=== PATIENT | male | born 1985 | race Caucasian/White ===

== ENCOUNTER 2022-11-28 21:48 | Inpatient (IN) ==
[2022-11-28] MEDS ORDERED: Lactated Ringers 1000 ml BAG 1,000 ML IV ONE (22:26)
[2022-11-29 00:13] LABS: ABS Basophils 0.1 10^3/uL (0.0-0.1); ABS Monocytes 1.4 10^3/uL (0.0-1.1); ABS Nucleated RBC 0.01 10^3/ul; Hematocrit 31.8 % (38-53); Hemoglobin 10.9 g/dL (13.2-16.3); Lymphocyte % 5.8 %; Mean Corpuscular Hemoglobin 28.9 pg (27-33); Mean Corpuscular Hgb Conc 34.3 g/dL (31-36); Mean Corpuscular Volume 84.2 fL (80-97); Mean Platelet Volume 8.1 fL (7.5-11.2); Nucleated Red Blood Cells % 0.1 %/100WBC (0.0-0.8); Platelet Count 289 10^3/uL (150-450); Red Blood Count 3.78 10^6/uL (4.06-5.63); Red Cell Distribution Width 12.6 % (12-17); White Blood Count 17.5 10^3/uL (3.6-10.2)
[2022-11-29 00:25] LABS: Albumin 3.4 g/dL (3.2-5.2); Calcium 8.8 mg/dL (8.6-10.3); Total Bilirubin 0.8 mg/dL (0.2-1.0)
[2022-11-29 00:31] LABS: Albumin/Globulin Ratio 0.8 (1-3); C Reactive Protein 268.69 mg/L (<8.01); Creatinine, Serum 0.5 mg/dL (0.67-1.17); Globulin 4.2 g/dL (2-4); Total Protein 7.6 g/dL (6.4-8.9); eGFR CKD-EPI 133.1 (>60)
[2022-11-29] MEDS ORDERED: Iohexol 300 (CONTRAST) 10 ML SDV IV ONE (00:42)
[2022-11-29 01:36] LABS: High Sensitivity Troponin 1 Hr 3 pg/mL (<20)
[2022-11-29] MEDS ORDERED: Cefepime 1 GM in Dextrose 1 GM/50 ML BAG IV ONE (01:55)
[2022-11-29] MEDS ORDERED: Vancomycin 1,500 MG in NS 0.9% 250 ml 250 ML IVPB ONE (01:55)
[2022-11-29] MEDS ORDERED: Lactated Ringers 1000 ml BAG 1,000 ML IV ONE (01:56)
[2022-11-29] MEDS ORDERED: Vancomycin per Pharmacy 1 EA NOTE FOLLOW UP PRN (06:04)
[2022-11-29 06:29] LABS: Urine Appearance Clear; Urine Bilirubin Negative (Negative); Urine Blood 1+ (Negative); Urine Color Yellow; Urine Glucose Negative (Negative); Urine Ketones Negative (Negative); Urine Nitrite Negative (Negative); Urine Protein Negative (Negative); Urine Specific Gravity 1.028 (1.002-1.030); Urine Urobilinogen Negative (Negative)
[2022-11-29 06:37] LABS: Urine Osmo 232 mOsm/kg (150-1150)
[2022-11-29 07:06] LABS: Urine Benzodiazepine Screen Presumptive Positive (None Detect); Urine Cannabinoids Screen None Detected (None Detect); Urine Opiates Screen None Detected (None Detect)
[2022-11-29 07:11] LABS: Urine Bacteria 1+ (Absent); Urine Red Blood Cell Trace(0-2/hpf) (Absent); Urine White Blood Cell Trace(0-5/hpf) (Absent)
[2022-11-29] MEDS ORDERED: Magnesium Hydroxide LIQ 30 ML UDC PO PRN (07:19)
[2022-11-29] MEDS ORDERED: Senna TAB 8.6 mg TAB PO PRN (07:19)
[2022-11-29 09:58] LABS: ABS Basophils 0.1 10^3/uL (0.0-0.1); ABS Lymphocytes 0.8 10^3/uL (1.0-4.8); ABS Monocytes 1.1 10^3/uL (0.0-1.1); ABS Neutrophils 13.1 10^3/uL (1.5-7.6); Eosinophil % 0.1 %; Hematocrit 32.5 % (38-53); Lymphocyte % 5.4 %; Mean Corpuscular Hemoglobin 28.7 pg (27-33); Mean Corpuscular Hgb Conc 33.9 g/dL (31-36); Mean Corpuscular Volume 84.5 fL (80-97); Mean Platelet Volume 7.7 fL (7.5-11.2); Platelet Count 280 10^3/uL (150-450); Red Blood Count 3.84 10^6/uL (4.06-5.63); Red Cell Distribution Width 12.8 % (12-17); White Blood Count 15.1 10^3/uL (3.6-10.2)
[2022-11-29 10:14] LABS: Calcium 8.3 mg/dL (8.6-10.3); Magnesium 1.6 mg/dL (1.9-2.7); Potassium 4.1 mmol/L (3.5-5.0)
[2022-11-29 10:19] LABS: Creatinine, Serum 0.53 mg/dL (0.67-1.17); eGFR CKD-EPI 130.7 (>60)
[2022-11-29] MEDS: Cefepime 2 GM in Dextrose 2 GM/50 ML BAG IV SCH ×2 (10:57→19:13)
[2022-11-29] MEDS: Vancomycin 1,250 MG in NS 0.9% 250 ml 250 ML IVPB SCH ×2 (12:45→21:02)
[2022-11-29] MEDS ORDERED: Ondansetron ODT 4 mg TAB 4 MG TAB PO PRN (14:52)
[2022-11-29] MEDS ORDERED: Magnesium Sulfate IV 3 GM in NS 0.9% 100 ml BAG 100 ML IVPB ONE (15:40)
[2022-11-29] MEDS ORDERED: Naloxone Nasal Spray 4 MG/0.1 ML NASAL.SPR INTRANASAL PRN (18:13)
[2022-11-29] MEDS: Morphine 2 MG/ML SYRINGE IV PRN (18:36)
[2022-11-30] MEDS: Morphine 2 MG/ML SYRINGE IV PRN ×4 (00:50→21:15)
[2022-11-30] MEDS: Cefepime 2 GM in Dextrose 2 GM/50 ML BAG IV SCH ×2 (02:47→09:06)
[2022-11-30] MEDS: Vancomycin 1,250 MG in NS 0.9% 250 ml 250 ML IVPB SCH ×2 (03:51→12:59)
[2022-11-30 08:50] LABS: Hematocrit 34.7 % (38-53); Hemoglobin 11.8 g/dL (13.2-16.3); Mean Corpuscular Hemoglobin 28.7 pg (27-33); Mean Corpuscular Volume 84.4 fL (80-97); Mean Platelet Volume 8.3 fL (7.5-11.2); Platelet Count 303 10^3/uL (150-450); Red Blood Count 4.12 10^6/uL (4.06-5.63); White Blood Count 12.7 10^3/uL (3.6-10.2)
[2022-11-30 09:55] LABS: Calcium 8.4 mg/dL (8.6-10.3); Creatinine, Serum 0.53 mg/dL (0.67-1.17); Potassium 3.9 mmol/L (3.5-5.0); eGFR CKD-EPI 130.7 (>60)
[2022-11-30 10:17] LABS: Osmolality Serum 268 mOsm/kg (275-295)
[2022-11-30] MEDS ORDERED: Vancomycin Trough Check NOTE FOLLOW UP ONE (11:30)
[2022-11-30] MEDS: NS 0.9% 1000 ml BAG 1,000 ML IV SCH (12:56)
[2022-11-30] MEDS: Vancomycin 1000 MG in NS 0.9% 250 ML IVPB SCH (18:40)
[2022-11-30 22:39] LABS: High Sensitivity Troponin 1 Hr 6 pg/mL (<20)
[2022-11-30] MEDS ORDERED: Gadoteridol (CONTRAST) 279.3 MG/ML 10 ML IV ONE (23:02)
[2022-12-01] MEDS: Morphine 2 MG/ML SYRINGE IV PRN ×7 (01:25→20:42)
[2022-12-01] MEDS: Vancomycin 1000 MG in NS 0.9% 250 ML IVPB SCH ×4 (01:41→18:42)
[2022-12-01] MEDS: NS 0.9% 1000 ml BAG 1,000 ML IV SCH (04:21)
[2022-12-01 05:51] LABS: Hematocrit 33.8 % (38-53); Hemoglobin 11.6 g/dL (13.2-16.3); Mean Corpuscular Hemoglobin 28.7 pg (27-33); Mean Corpuscular Hgb Conc 34.2 g/dL (31-36); Mean Corpuscular Volume 83.8 fL (80-97); Platelet Count 339 10^3/uL (150-450); Red Blood Count 4.04 10^6/uL (4.06-5.63); Red Cell Distribution Width 12.9 % (12-17); White Blood Count 12.3 10^3/uL (3.6-10.2)
[2022-12-01 06:05] LABS: Calcium 8.3 mg/dL (8.6-10.3); Creatinine, Serum 0.53 mg/dL (0.67-1.17); Potassium 4.2 mmol/L (3.5-5.0); eGFR CKD-EPI 130.7 (>60)
[2022-12-01] MEDS ORDERED: Lidocaine 2% PF 5 ML VIAL ONE (11:02)
[2022-12-01] MEDS ORDERED: Phenylephrine 40 mcg/mL 10mL (400mcg) SYRINGE ONE (11:03)
[2022-12-01] MEDS ORDERED: Propofol 10 MG/ML 20 ML BTL ONE (11:07)
[2022-12-01] MEDS ORDERED: Vancomycin Trough Check NOTE FOLLOW UP ONE (11:30)
[2022-12-01 12:06] LABS: Creatinine, Serum 0.4 mg/dL (0.67-1.17); eGFR CKD-EPI 142.3 (>60)
[2022-12-01 16:28] LABS: HIV 4th Generation Nonreactive (Nonreactive)
[2022-12-01 17:23] VITALS: BP 156/87
[2022-12-01 18:02] LABS: Hepatitis C Antibody Reactive (Negative)
[2022-12-04] MEDS ORDERED: Vancomycin Trough Check NOTE FOLLOW UP ONE (05:30)
== END 2022-12-01 21:10 | disposition short-term general hospital (02) | DRG 720 ==
LOC: ED 21:48 → SUATTDRO 11-29 05:37 → EDHOLD 11-29 05:37 → MED 11-29 05:37
PROVIDERS: ADMIT Hospitalist; ATTEND Student in an Organized Health Care Education/Training Program

== ENCOUNTER 2022-12-10 16:37 | Inpatient (IN) ==
[2022-12-10 17:41] LABS: ABS Eosinophils 0.2 10^3/uL (0.0-0.5); ABS Lymphocytes 2.4 10^3/uL (1.0-4.8); ABS Monocytes 0.5 10^3/uL (0.0-1.1); ABS Neutrophils 5.4 10^3/uL (1.5-7.6); ABS Nucleated RBC 0.01 10^3/ul; Eosinophil % 2.7 %; Hemoglobin 11.4 g/dL (13.2-16.3); Lymphocyte % 28.3 %; Mean Corpuscular Hemoglobin 28.2 pg (27-33); Mean Corpuscular Hgb Conc 33.6 g/dL (31-36); Mean Corpuscular Volume 83.7 fL (80-97); Mean Platelet Volume 6.9 fL (7.5-11.2); Nucleated Red Blood Cells % 0.1 %/100WBC (0.0-0.8); Platelet Count 678 10^3/uL (150-450); Red Blood Count 4.06 10^6/uL (4.06-5.63); Red Cell Distribution Width 13.4 % (12-17); White Blood Count 8.6 10^3/uL (3.6-10.2)
[2022-12-10 17:51] LABS: Activated Partial Thrombo Time 32.7 seconds (26.0-38.0); INR 0.98 (0.83-1.13)
[2022-12-10 17:57] LABS: Creatinine, Serum 0.71 mg/dL (0.67-1.17); eGFR CKD-EPI 119.7 (>60)
[2022-12-10] MEDS ORDERED: Vancomycin per Pharmacy 1 EA NOTE FOLLOW UP SCH (18:00)
[2022-12-10] MEDS: Vancomycin 1,500 MG in NS 0.9% 250 ml 250 ML IVPB SCH (18:35)
[2022-12-10] MEDS: Heparin 5000 UNITS/ML 1 mL VIAL SUBCUT SCH (21:10)
[2022-12-11 06:39] LABS: ABS Eosinophils 0.2 10^3/uL (0.0-0.5); ABS Lymphocytes 1.8 10^3/uL (1.0-4.8); ABS Monocytes 0.6 10^3/uL (0.0-1.1); ABS Neutrophils 4.3 10^3/uL (1.5-7.6); ABS Nucleated RBC 0.01 10^3/ul; Eosinophil % 3.1 %; Hematocrit 33.4 % (38-53); Hemoglobin 11.2 g/dL (13.2-16.3); Lymphocyte % 25.5 %; Mean Corpuscular Hemoglobin 28.3 pg (27-33); Mean Corpuscular Hgb Conc 33.7 g/dL (31-36); Mean Corpuscular Volume 83.9 fL (80-97); Mean Platelet Volume 7.3 fL (7.5-11.2); Nucleated Red Blood Cells % 0.1 %/100WBC (0.0-0.8); Platelet Count 599 10^3/uL (150-450); Red Blood Count 3.97 10^6/uL (4.06-5.63); Red Cell Distribution Width 13.6 % (12-17)
[2022-12-11 06:51] LABS: Albumin 3.2 g/dL (3.2-5.2); Albumin/Globulin Ratio 0.7 (1-3); Calcium 8.9 mg/dL (8.6-10.3); Creatinine, Serum 0.6 mg/dL (0.67-1.17); Globulin 4.7 g/dL (2-4); Magnesium 2.1 mg/dL (1.9-2.7); Potassium 4.1 mmol/L (3.5-5.0); Total Bilirubin 0.2 mg/dL (0.2-1.0); Total Protein 7.9 g/dL (6.4-8.9); eGFR CKD-EPI 125.9 (>60)
[2022-12-11] MEDS: Nicotine PATCH 21 MG/24 HR PATCH TRANSDERM SCH (08:46)
[2022-12-11] MEDS ORDERED: Vancomycin Trough Check NOTE FOLLOW UP ONE (09:30)
[2022-12-11 10:09] LABS: Vancomycin Trough 21.4 mcg/mL
[2022-12-11] MEDS: Vancomycin Trough Check NOTE FOLLOW UP ONE (10:27)
[2022-12-11 10:49] LABS: Creatinine, Serum 0.58 mg/dL (0.67-1.17); eGFR CKD-EPI 127.2 (>60)
[2022-12-11] MEDS: Vancomycin 1,250 MG in NS 0.9% 250 ml 250 ML IVPB SCH (22:34)
[2022-12-11] MEDS: Calcium Carb (TUMS) 500 mg CHEW TAB PO SCH (23:15)
[2022-12-13 05:56] LABS: ABS Basophils 0.1 10^3/uL (0.0-0.1); ABS Eosinophils 0.2 10^3/uL (0.0-0.5); ABS Lymphocytes 1.8 10^3/uL (1.0-4.8); ABS Monocytes 0.6 10^3/uL (0.0-1.1); ABS Neutrophils 4.3 10^3/uL (1.5-7.6); ABS Nucleated RBC 0.01 10^3/ul; Eosinophil % 3.3 %; Hematocrit 33.9 % (38-53); Hemoglobin 11.3 g/dL (13.2-16.3); Lymphocyte % 25.7 %; Mean Corpuscular Hemoglobin 27.9 pg (27-33); Mean Corpuscular Hgb Conc 33.2 g/dL (31-36); Mean Platelet Volume 7.1 fL (7.5-11.2); Nucleated Red Blood Cells % 0.2 %/100WBC (0.0-0.8); Platelet Count 517 10^3/uL (150-450); Red Blood Count 4.03 10^6/uL (4.06-5.63); Red Cell Distribution Width 13.7 % (12-17); White Blood Count 6.9 10^3/uL (3.6-10.2)
[2022-12-13 06:09] LABS: Creatinine, Serum 0.61 mg/dL (0.67-1.17); eGFR CKD-EPI 125.3 (>60)
[2022-12-13] MEDS: Vancomycin Trough Check NOTE FOLLOW UP ONE (07:35)
[2022-12-15 06:08] LABS: Creatinine, Serum 0.61 mg/dL (0.67-1.17); eGFR CKD-EPI 125.3 (>60)
[2022-12-16 08:23] LABS: Creatinine, Serum 0.62 mg/dL (0.67-1.17); eGFR CKD-EPI 124.7 (>60)
[2022-12-17 05:36] LABS: Creatinine, Serum 0.61 mg/dL (0.67-1.17); eGFR CKD-EPI 125.3 (>60)
[2022-12-17 05:47] LABS: Vancomycin Trough 14.6 mcg/mL
[2022-12-17] MEDS: Vancomycin Trough Check NOTE FOLLOW UP ONE (06:16)
[2022-12-17] MEDS ORDERED: Magnesium Hydroxide LIQ 30 ML UDC PO PRN (09:11)
[2022-12-17] MEDS: Senna TAB 8.6 mg TAB PO SCH (21:16)
[2022-12-18] MEDS: Polyethylene Glycol 3350 17 GM PACKET PO SCH (08:40)
[2022-12-19] MEDS: Alteplase (CATHFLO) 2 MG VIAL IV ONE (09:31)
[2022-12-20 06:00] LABS: ABS Eosinophils 0.2 10^3/uL (0.0-0.5); ABS Lymphocytes 0.9 10^3/uL (1.0-4.8); ABS Monocytes 0.5 10^3/uL (0.0-1.1); ABS Neutrophils 5.3 10^3/uL (1.5-7.6); ABS Nucleated RBC 0.01 10^3/ul; Eosinophil % 2.5 %; Hematocrit 32.5 % (38-53); Lymphocyte % 13.1 %; Mean Corpuscular Hemoglobin 28.6 pg (27-33); Mean Corpuscular Hgb Conc 33.8 g/dL (31-36); Mean Corpuscular Volume 84.7 fL (80-97); Mean Platelet Volume 7.8 fL (7.5-11.2); Nucleated Red Blood Cells % 0.2 %/100WBC (0.0-0.8); Platelet Count 247 10^3/uL (150-450); Red Blood Count 3.84 10^6/uL (4.06-5.63); Red Cell Distribution Width 14.3 % (12-17); White Blood Count 6.9 10^3/uL (3.6-10.2)
[2022-12-21] MEDS ORDERED: Nicotine PATCH 21 MG/24 HR PATCH TRANSDERM PRN (08:58)
[2022-12-21] MEDS ORDERED: Polyethylene Glycol 3350 17 GM PACKET PO PRN (08:58)
[2022-12-22 09:03] LABS: Creatinine, Serum 0.57 mg/dL (0.67-1.17); eGFR CKD-EPI 127.9 (>60)
[2022-12-22 09:25] LABS: Vancomycin Trough 26.2 mcg/mL
[2022-12-22 16:52] LABS: ABS Eosinophils 0.2 10^3/uL (0.0-0.5); ABS Lymphocytes 1.2 10^3/uL (1.0-4.8); ABS Monocytes 0.6 10^3/uL (0.0-1.1); ABS Neutrophils 3.5 10^3/uL (1.5-7.6); ABS Nucleated RBC 0.01 10^3/ul; Eosinophil % 3.9 %; Hematocrit 30.8 % (38-53); Hemoglobin 10.3 g/dL (13.2-16.3); Lymphocyte % 20.9 %; Mean Corpuscular Hemoglobin 28.1 pg (27-33); Mean Corpuscular Hgb Conc 33.4 g/dL (31-36); Mean Corpuscular Volume 84.3 fL (80-97); Mean Platelet Volume 7.6 fL (7.5-11.2); Nucleated Red Blood Cells % 0.1 %/100WBC (0.0-0.8); Platelet Count 173 10^3/uL (150-450); Red Blood Count 3.65 10^6/uL (4.06-5.63); Red Cell Distribution Width 14.6 % (12-17); White Blood Count 5.6 10^3/uL (3.6-10.2)
[2022-12-23] MEDS: PTO:Sofosbuvir/Velpatasvir 400/100(NF) TAB (Epclusa) PO SCH (14:00)
[2022-12-24 06:41] LABS: Creatinine, Serum 0.52 mg/dL (0.67-1.17); Vancomycin Trough 10.6 mcg/mL; eGFR CKD-EPI 131.5 (>60)
[2022-12-24] MEDS: Vancomycin Trough Check NOTE FOLLOW UP ONE (07:38)
[2022-12-24 11:42] LABS: Albumin 3.5 g/dL (3.2-5.2); Albumin/Globulin Ratio 0.9 (1-3); C Reactive Protein 142.78 mg/L (<8.01); Calcium 8.9 mg/dL (8.6-10.3); Globulin 4.1 g/dL (2-4); Potassium 3.8 mmol/L (3.5-5.0); Total Bilirubin 0.5 mg/dL (0.2-1.0); Total Protein 7.6 g/dL (6.4-8.9)
[2022-12-26] MEDS: Enoxaparin 40 MG/0.4 ML SYR SUBCUT SCH (20:05)
[2022-12-27] MEDS: Alteplase (CATHFLO) 2 MG VIAL IV ONE (08:16)
[2022-12-28 06:29] LABS: ABS Basophils 0.1 10^3/uL (0.0-0.1); ABS Eosinophils 0.5 10^3/uL (0.0-0.5); ABS Lymphocytes 1.6 10^3/uL (1.0-4.8); ABS Monocytes 0.6 10^3/uL (0.0-1.1); ABS Neutrophils 3.6 10^3/uL (1.5-7.6); Eosinophil % 7.6 %; Hematocrit 30.4 % (38-53); Hemoglobin 10.1 g/dL (13.2-16.3); Mean Corpuscular Hemoglobin 27.2 pg (27-33); Mean Corpuscular Hgb Conc 33.2 g/dL (31-36); Mean Corpuscular Volume 81.8 fL (80-97); Mean Platelet Volume 7.9 fL (7.5-11.2); Nucleated Red Blood Cells % 0.1 %/100WBC (0.0-0.8); Platelet Count 305 10^3/uL (150-450); Red Blood Count 3.72 10^6/uL (4.06-5.63); Red Cell Distribution Width 14.7 % (12-17); White Blood Count 6.4 10^3/uL (3.6-10.2)
[2022-12-28 06:46] LABS: Albumin 3.4 g/dL (3.2-5.2); Albumin/Globulin Ratio 0.8 (1-3); C Reactive Protein 51.12 mg/L (<8.01); Creatinine, Serum 0.53 mg/dL (0.67-1.17); Globulin 4.2 g/dL (2-4); Potassium 4.2 mmol/L (3.5-5.0); Total Bilirubin 0.3 mg/dL (0.2-1.0); Total Protein 7.6 g/dL (6.4-8.9); eGFR CKD-EPI 130.7 (>60)
[2022-12-31 07:00] LABS: Creatinine, Serum 0.6 mg/dL (0.67-1.17); Vancomycin Trough 13.2 mcg/mL; eGFR CKD-EPI 125.9 (>60)
[2022-12-31] MEDS: Vancomycin Trough Check NOTE FOLLOW UP ONE (07:30)
[2023-01-04 07:11] LABS: Albumin 3.7 g/dL (3.2-5.2); Albumin/Globulin Ratio 0.9 (1-3); C Reactive Protein 19.04 mg/L (<8.01); Calcium 9.4 mg/dL (8.6-10.3); Creatinine, Serum 0.63 mg/dL (0.67-1.17); Globulin 4.2 g/dL (2-4); Potassium 4.2 mmol/L (3.5-5.0); Total Bilirubin 0.3 mg/dL (0.2-1.0); Total Protein 7.9 g/dL (6.4-8.9); eGFR CKD-EPI 124.1 (>60)
[2023-01-04 08:21] LABS: ABS Eosinophils 0.3 10^3/uL (0.0-0.5); ABS Lymphocytes 1.5 10^3/uL (1.0-4.8); ABS Monocytes 0.7 10^3/uL (0.0-1.1); ABS Neutrophils 4.1 10^3/uL (1.5-7.6); ABS Nucleated RBC 0.01 10^3/ul; Eosinophil % 4.5 %; Hematocrit 33.2 % (38-53); Hemoglobin 11.1 g/dL (13.2-16.3); Lymphocyte % 22.3 %; Mean Corpuscular Hemoglobin 26.8 pg (27-33); Mean Corpuscular Hgb Conc 33.3 g/dL (31-36); Mean Corpuscular Volume 80.3 fL (80-97); Mean Platelet Volume 8.4 fL (7.5-11.2); Nucleated Red Blood Cells % 0.2 %/100WBC (0.0-0.8); Platelet Count 428 10^3/uL (150-450); Red Blood Count 4.14 10^6/uL (4.06-5.63); Red Cell Distribution Width 14.6 % (12-17); White Blood Count 6.6 10^3/uL (3.6-10.2)
[2023-01-04] MEDS: PTO:Sofosbuvir/Velpatasvir 400/100(NF) TAB (Epclusa) PO SCH (13:49)
[2023-01-06] MEDS: Alteplase (CATHFLO) 2 MG VIAL IV ONE (05:57)
[2023-01-06] MEDS: Vancomycin Trough Check NOTE FOLLOW UP ONE (19:24)
[2023-01-09 06:32] VITALS: BP 101/62
== END 2023-01-10 12:35 | disposition swing bed (61) | DRG 49 ==
LOC: SUATTDRO 16:37 → MEDTELE 16:37
PROVIDERS: ADMIT Internal Medicine; ATTEND Student in an Organized Health Care Education/Training Program

== ENCOUNTER 2023-02-24 17:40 | Inpatient (IN) ==
[2023-02-24 20:20] LABS: ABS Basophils 0.1 10^3/uL (0.0-0.1); ABS Lymphocytes 1.5 10^3/uL (1.0-4.8); ABS Monocytes 0.6 10^3/uL (0.0-1.1); ABS Neutrophils 6.1 10^3/uL (1.5-7.6); ABS Nucleated RBC 0.02 10^3/ul; Eosinophil % 0.2 %; Hematocrit 35.4 % (38-53); Hemoglobin 11.7 g/dL (13.2-16.3); Lymphocyte % 17.7 %; Mean Corpuscular Hemoglobin 25.3 pg (27-33); Mean Corpuscular Hgb Conc 33.1 g/dL (31-36); Mean Corpuscular Volume 76.4 fL (80-97); Mean Platelet Volume 8.2 fL (7.5-11.2); Nucleated Red Blood Cells % 0.2 %/100WBC (0.0-0.8); Platelet Count 249 10^3/uL (150-450); Red Blood Count 4.63 10^6/uL (4.06-5.63); White Blood Count 8.3 10^3/uL (3.6-10.2)
[2023-02-24 20:38] LABS: Albumin 3.8 g/dL (3.2-5.2); Albumin/Globulin Ratio 0.8 (1-3); C Reactive Protein 96.58 mg/L (<8.01); Creatinine, Serum 0.53 mg/dL (0.67-1.17); Globulin 4.8 g/dL (2-4); Total Bilirubin 0.4 mg/dL (0.2-1.0); Total Protein 8.6 g/dL (6.4-8.9); eGFR CKD-EPI 130.7 (>60)
[2023-02-25] MEDS ORDERED: Iohexol 350 (CONTRAST) 500 ML MDV IV ONE (00:49)
[2023-02-25 03:17] LABS: HIV 4th Generation Nonreactive (Nonreactive)
[2023-02-25] MEDS ORDERED: Piperacillin/Tazobac 3.375 BAG 3.375 GM/100 ML BAG IV ONE (07:34)
[2023-02-25] MEDS ORDERED: Vancomycin 1,500 MG in NS 0.9% 250 ml 250 ML IVPB ONE (07:34)
[2023-02-25] MEDS ORDERED: Lactated Ringers 1000 ml BAG 1,000 ML IV ONE (08:27)
[2023-02-25] MEDS ORDERED: Gadoteridol (CONTRAST) 279.3 MG/ML 10 ML IV ONE (12:50)
[2023-02-25] MEDS ORDERED: Ondansetron ODT 4 mg TAB 4 MG TAB PO PRN (15:17)
[2023-02-25] MEDS ORDERED: Enoxaparin 40 MG/0.4 ML SYR SUBCUT SCH (16:00)
[2023-02-25 17:20] LABS: Osmolality Serum 283 mOsm/kg (275-295)
[2023-02-25] MEDS ORDERED: Senna TAB 8.6 mg TAB PO SCH (21:00)
[2023-02-26 08:59] LABS: Calcium 8.7 mg/dL (8.6-10.3); Creatinine, Serum 0.62 mg/dL (0.67-1.17); Potassium 4.2 mmol/L (3.5-5.0); eGFR CKD-EPI 124.7 (>60)
[2023-02-26] MEDS ORDERED: Polyethylene Glycol 3350 17 GM PACKET PO SCH (09:00)
[2023-02-26 10:35] VITALS: BP 111/68
[2023-02-26] MEDS ORDERED: SOFOSBUVIR PO SCH (13:00)
[2023-02-26] MEDS ORDERED: VELPATASVIR PO SCH (13:00)
== END 2023-02-26 13:50 | disposition home or self-care (01) | DRG 861 ==
LOC: ED 17:40 → EDHOLD 02-25 15:07 → SSU 02-25 16:20
PROVIDERS: ADMIT Hospitalist; ATTEND Hospitalist

== ENCOUNTER 2023-06-14 18:16 | Inpatient (IN) ==
[2023-06-14 19:30] LABS: INR 1.43 (0.83-1.13)
[2023-06-14 20:12] LABS: Albumin 3.2 g/dL (3.2-5.2); Albumin/Globulin Ratio 0.6 (1-3); Calcium 8.2 mg/dL (8.6-10.3); Creatinine, Serum 0.61 mg/dL (0.67-1.17); Globulin 5.1 g/dL (2-4); Total Bilirubin 0.4 mg/dL (0.2-1.0); Total Protein 8.3 g/dL (6.4-8.9); eGFR CKD-EPI 124.5 (>60)
[2023-06-14 21:25] LABS: Hematocrit 31.5 % (38-53); Hemoglobin 10.6 g/dL (13.2-16.3); Mean Corpuscular Hemoglobin 25.6 pg (27-33); Mean Corpuscular Hgb Conc 33.6 g/dL (31-36); Mean Corpuscular Volume 76.2 fL (80-97); Mean Platelet Volume 7.6 fL (7.5-11.2); Platelet Count 409 10^3/uL (150-450); Red Blood Count 4.13 10^6/uL (4.06-5.63); White Blood Count 13.7 10^3/uL (3.6-10.2)
[2023-06-14 21:42] LABS: ABS Monocytes 0.6 10^3/uL (0.0-1.1); ABS Neutrophils 12.1 10^3/uL (1.5-7.6); Eosinophil % 0.2 %; Lymphocyte % 7.2 %
[2023-06-14 21:43] LABS: High Sensitivity Troponin 1 Hr 5 pg/mL (<20)
[2023-06-15 02:51] LABS: Urine Appearance Clear; Urine Bilirubin Negative (Negative); Urine Blood 1+ (Negative); Urine Color Yellow; Urine Glucose Negative (Negative); Urine Ketones Trace (Negative); Urine Nitrite Negative (Negative); Urine Protein Trace (Negative); Urine Specific Gravity 1.016 (1.002-1.030); Urine Urobilinogen 1+ (Negative); Urine pH 5.5 (5.0-8.0)
[2023-06-15 02:52] LABS: Urine Bacteria Absent /HPF (Absent); Urine Red Blood Cell Trace(0-2/hpf) /HPF (0-Trace); Urine White Blood Cell 3+(>20/hpf) /HPF (0-Trace)
[2023-06-15] MEDS: Amoxicillin/Clavul 875/125 TAB (Augmentin 875 tab) PO ONE (03:12)
[2023-06-15] MEDS: HYDROmorphone 1 MG/1 ML SYRINGE IV SLOW PU ONE (03:41)
[2023-06-15] MEDS: cefTRIAXone 1 gm/50 mL D5W 1 GM/50 ML BAG IV SCH (03:41)
[2023-06-15] MEDS: DOXYcycline 100 MG in NS 0.9% 250 ml 250 ML IVPB ONE (05:29)
[2023-06-15] MEDS: Ondansetron 4 mg VIAL 2 MG/ML 2 ml VIAL IV ONE (05:29)
[2023-06-15] MEDS ORDERED: Vancomycin per Pharmacy 1 EA NOTE FOLLOW UP SCH (06:00)
[2023-06-15] MEDS: Iohexol 350 (CONTRAST) 500 ML MDV IV ONE (06:14)
[2023-06-15] MEDS ORDERED: Vancomycin 1,000 MG BAG/ADDV ONE (06:45)
[2023-06-15] MEDS: Vancomycin 1,000 MG in NS 0.9% 250 ml 250 ML IVPB ONE (06:46)
[2023-06-15 09:58] LABS: C Reactive Protein 276.76 mg/L (<8.01)
[2023-06-15] MEDS: HYDROmorphone 1 MG/1 ML SYRINGE IV ONE (10:08)
[2023-06-15 10:31] LABS: Urine Osmo 436 mOsm/kg (150-1150)
[2023-06-15] MEDS ORDERED: Senna TAB 8.6 mg TAB PO PRN (10:34)
[2023-06-15 10:43] LABS: Iron < 20 ug/dL (50-212); Transferrin 152 mg/dL (203-362)
[2023-06-15 11:06] LABS: Folate 13.16 ng/mL (5.90-24.80); Vitamin B12 149 pg/mL (180-914)
[2023-06-15] MEDS: Enoxaparin 40 MG/0.4 ML SYR SUBCUT SCH (11:15)
[2023-06-15] MEDS: Polyethylene Glycol 3350 17 GM PACKET PO ONE (11:15)
[2023-06-15 11:25] LABS: Osmolality Serum 275 mOsm/kg (275-295)
[2023-06-15] MEDS ORDERED: Ondansetron 4 mg VIAL 2 MG/ML 2 ml VIAL IV PRN (11:34)
[2023-06-15] MEDS: Lidocaine PATCH 4% TOPICAL SCH (12:31)
[2023-06-15] MEDS: Lactated Ringers 1000 ml BAG 1,000 ML IV ONE ×2 (12:31→19:55)
[2023-06-15 13:32] LABS: HIV 4th Generation Nonreactive (Nonreactive)
[2023-06-15] MEDS: Cyanocobalamin INJ 1,000 MCG/ML VIAL 1 ML VIAL IM ONE (14:18)
[2023-06-15] MEDS: Vancomycin 1,250 MG in NS 0.9% 250 ml 250 ML IVPB SCH (14:34)
[2023-06-15] MEDS ORDERED: Vancomycin 1,250 MG in NS 0.9% 250 ml 250 ML IVPB SCH (15:00)
[2023-06-15] MEDS: DOXYcycline 100 MG in NS 0.9% 250 ml 250 ML IVPB SCH (16:44)
[2023-06-15] MEDS ORDERED: Sulfur Hexaflouride MICROSPHR 25 MG VIAL ONE (16:46)
[2023-06-15 17:59] LABS: Calcium 7.9 mg/dL (8.6-10.3); Creatinine, Serum 0.42 mg/dL (0.67-1.17); Potassium 4.3 mmol/L (3.5-5.0); eGFR CKD-EPI 139.4 (>60)
[2023-06-15] MEDS: NS 0.9% 1000 ml BAG 1,000 ML IV ONE (19:14)
[2023-06-16] MEDS ORDERED: Azithromycin 500 mg/250 ml NS 500 MG/250 ML BAG IVPB SCH (01:00)
[2023-06-16] MEDS: cefTRIAXone 1 gm/50 mL D5W 1 GM/50 ML BAG IV SCH (02:50)
[2023-06-16 09:22] LABS: ABS Lymphocytes 0.7 10^3/uL (1.0-4.8); ABS Monocytes 0.6 10^3/uL (0.0-1.1); ABS Neutrophils 8.1 10^3/uL (1.5-7.6); Eosinophil % 0.4 %; Hematocrit 28.2 % (38-53); Hemoglobin 9.2 g/dL (13.2-16.3); Lymphocyte % 7.3 %; Mean Corpuscular Hemoglobin 24.9 pg (27-33); Mean Corpuscular Hgb Conc 32.5 g/dL (31-36); Mean Corpuscular Volume 76.6 fL (80-97); Mean Platelet Volume 7.6 fL (7.5-11.2); Platelet Count 330 10^3/uL (150-450); Red Blood Count 3.68 10^6/uL (4.06-5.63); Red Cell Distribution Width 16.1 % (12-17); White Blood Count 9.5 10^3/uL (3.6-10.2)
[2023-06-16 09:46] LABS: Calcium 7.6 mg/dL (8.6-10.3); Creatinine, Serum 0.41 mg/dL (0.67-1.17); Potassium 4.2 mmol/L (3.5-5.0); eGFR CKD-EPI 140.4 (>60)
[2023-06-16] MEDS: Vancomycin Trough Check NOTE FOLLOW UP ONE (10:07)
[2023-06-16] MEDS: Magnesium CITRATE LIQ 300 ML BTL PO ONE (10:56)
[2023-06-16] MEDS: Senna TAB 8.6 mg TAB PO SCH (10:56)
[2023-06-16] MEDS: LORazepam 2 mg VIAL 1 ml IV PUSH ONE ×2 (18:03→18:30)
[2023-06-16] MEDS: Gadoteridol (CONTRAST) 279.3 MG/ML 10 ML IV ONE (19:28)
[2023-06-16] MEDS: Vancomycin 1,500 MG in NS 0.9% 250 ml 250 ML IVPB SCH (19:50)
[2023-06-17 06:12] LABS: ABS Basophils 0.1 10^3/uL (0.0-0.1); ABS Lymphocytes 1.2 10^3/uL (1.0-4.8); ABS Monocytes 0.6 10^3/uL (0.0-1.1); ABS Neutrophils 6.9 10^3/uL (1.5-7.6); ABS Nucleated RBC 0.01 10^3/ul; Eosinophil % 0.4 %; Hematocrit 29.3 % (38-53); Hemoglobin 9.8 g/dL (13.2-16.3); Lymphocyte % 13.3 %; Mean Corpuscular Hemoglobin 25.4 pg (27-33); Mean Corpuscular Hgb Conc 33.3 g/dL (31-36); Mean Corpuscular Volume 76.3 fL (80-97); Mean Platelet Volume 7.5 fL (7.5-11.2); Nucleated Red Blood Cells % 0.1 %/100WBC (0.0-0.8); Platelet Count 358 10^3/uL (150-450); Red Blood Count 3.84 10^6/uL (4.06-5.63); Red Cell Distribution Width 16.5 % (12-17); White Blood Count 8.9 10^3/uL (3.6-10.2)
[2023-06-17 06:44] LABS: Calcium 7.7 mg/dL (8.6-10.3); Creatinine, Serum 0.41 mg/dL (0.67-1.17); Potassium 4.4 mmol/L (3.5-5.0); eGFR CKD-EPI 140.4 (>60)
[2023-06-17] MEDS: Polyethylene Glycol 3350 17 GM PACKET PO SCH (12:46)
[2023-06-17] MEDS: Vancomycin Trough Check NOTE FOLLOW UP ONE (14:17)
[2023-06-17 14:35] LABS: TB1 Ag minus Nil Result -0.01 IU/mL
[2023-06-17 14:41] LABS: QuantiferonTb Gold Plus Result Negative (Negative)
[2023-06-17 15:10] LABS: Fungitell Qualitative Result Negative (Negative); Fungitell Quantitative Value <31 pg/mL (<60 pg/mL)
[2023-06-17] MEDS: Vancomycin 1,500 MG in NS 0.9% 250 ml 250 ML IVPB SCH (21:34)
[2023-06-18] MEDS: CMCS: Ketorolac 10 mg TAB (NF) PO PRN (02:20)
[2023-06-18 06:40] LABS: ABS Lymphocytes 1.2 10^3/uL (1.0-4.8); ABS Monocytes 0.7 10^3/uL (0.0-1.1); ABS Neutrophils 6.3 10^3/uL (1.5-7.6); ABS Nucleated RBC 0.01 10^3/ul; Eosinophil % 0.5 %; Hematocrit 27.4 % (38-53); Hemoglobin 9.1 g/dL (13.2-16.3); Lymphocyte % 14.9 %; Mean Corpuscular Hgb Conc 33.1 g/dL (31-36); Mean Corpuscular Volume 75.3 fL (80-97); Nucleated Red Blood Cells % 0.1 %/100WBC (0.0-0.8); Platelet Count 396 10^3/uL (150-450); Red Blood Count 3.64 10^6/uL (4.06-5.63); Red Cell Distribution Width 16.3 % (12-17); White Blood Count 8.3 10^3/uL (3.6-10.2)
[2023-06-18 06:53] LABS: Calcium 7.9 mg/dL (8.6-10.3); Creatinine, Serum 0.48 mg/dL (0.67-1.17); Potassium 4.2 mmol/L (3.5-5.0); eGFR CKD-EPI 133.9 (>60)
[2023-06-18 14:51] LABS: Creatinine, Serum 0.51 mg/dL (0.67-1.17); Vancomycin Trough 15.4 mcg/mL; eGFR CKD-EPI 131.4 (>60)
[2023-06-18] MEDS: Vancomycin Trough Check NOTE FOLLOW UP ONE (15:24)
[2023-06-19 06:45] LABS: ABS Basophils 0.1 10^3/uL (0.0-0.1); ABS Lymphocytes 1.2 10^3/uL (1.0-4.8); ABS Monocytes 0.7 10^3/uL (0.0-1.1); ABS Neutrophils 7.4 10^3/uL (1.5-7.6); Eosinophil % 0.4 %; Hematocrit 32.3 % (38-53); Hemoglobin 10.7 g/dL (13.2-16.3); Lymphocyte % 13.1 %; Mean Corpuscular Hemoglobin 25.4 pg (27-33); Mean Corpuscular Hgb Conc 33.2 g/dL (31-36); Mean Corpuscular Volume 76.5 fL (80-97); Mean Platelet Volume 7.2 fL (7.5-11.2); Platelet Count 426 10^3/uL (150-450); Red Blood Count 4.22 10^6/uL (4.06-5.63); Red Cell Distribution Width 16.3 % (12-17); White Blood Count 9.5 10^3/uL (3.6-10.2)
[2023-06-19 07:21] LABS: Albumin 2.6 g/dL (3.2-5.2); Albumin/Globulin Ratio 0.6 (1-3); Calcium 8.4 mg/dL (8.6-10.3); Creatinine, Serum 0.52 mg/dL (0.67-1.17); Globulin 4.6 g/dL (2-4); Potassium 4.6 mmol/L (3.5-5.0); Total Bilirubin 0.2 mg/dL (0.2-1.0); Total Protein 7.2 g/dL (6.4-8.9); eGFR CKD-EPI 130.7 (>60)
[2023-06-19] MEDS: Nicotine PATCH 21 MG/24 HR PATCH TRANSDERM SCH (08:18)
[2023-06-19] MEDS ORDERED: methylPREDNISolone SOD SUCC 40 mg/ml 1 ml VIAL IV SCH (09:00)
[2023-06-20 07:02] LABS: ABS Lymphocytes 1.3 10^3/uL (1.0-4.8); ABS Monocytes 0.5 10^3/uL (0.0-1.1); ABS Neutrophils 9.4 10^3/uL (1.5-7.6); ABS Nucleated RBC 0.01 10^3/ul; Eosinophil % 0.3 %; Hematocrit 36.8 % (38-53); Hemoglobin 11.4 g/dL (13.2-16.3); Lymphocyte % 11.7 %; Mean Corpuscular Hemoglobin 24.8 pg (27-33); Mean Platelet Volume 7.6 fL (7.5-11.2); Nucleated Red Blood Cells % 0.1 %/100WBC (0.0-0.8); Platelet Count 209 10^3/uL (150-450); Red Cell Distribution Width 16.9 % (12-17); White Blood Count 11.2 10^3/uL (3.6-10.2)
[2023-06-20 07:52] LABS: Anion Gap 13 mmol/L (2-16); Blood Urea Nitrogen 11 mg/dL (6-24); CO2 Carbon Dioxide 26 mmol/L (22-32); Calcium 8.6 mg/dL (8.6-10.3); Chloride 97 mmol/L (101-111); Creatinine, Serum 0.58 mg/dL (0.67-1.17); Glucose 113 mg/dL (70-100); Magnesium 2.1 mg/dL (1.9-2.7); Sodium 136 mmol/L (135-145); eGFR CKD-EPI 126.4 (>60)
[2023-06-20] MEDS: Vancomycin Trough Check NOTE FOLLOW UP ONE (08:46)
[2023-06-22] MEDS: Morphine 2 MG/ML SYRINGE IV PRN (02:26)
[2023-06-22 09:34] LABS: ABS Lymphocytes 1.3 10^3/uL (1.0-4.8); ABS Monocytes 0.2 10^3/uL (0.0-1.1); ABS Neutrophils 6.1 10^3/uL (1.5-7.6); ABS Nucleated RBC 0.01 10^3/ul; Eosinophil % 0.4 %; Hematocrit 38.9 % (38-53); Lymphocyte % 17.2 %; Mean Corpuscular Hemoglobin 25.1 pg (27-33); Mean Platelet Volume 7.8 fL (7.5-11.2); Nucleated Red Blood Cells % 0.1 %/100WBC (0.0-0.8); Platelet Count 290 10^3/uL (150-450); Red Blood Count 4.79 10^6/uL (4.06-5.63); Red Cell Distribution Width 16.8 % (12-17); White Blood Count 7.6 10^3/uL (3.6-10.2)
[2023-06-23] MEDS: Vancomycin Trough Check NOTE FOLLOW UP ONE (15:30)
[2023-06-24] MEDS: Vancomycin 1,250 MG in NS 0.9% 250 ml 250 ML IVPB SCH (00:42)
[2023-06-24] MEDS: Lidocaine 1% MPF 5 ML VIAL INJ ONE (16:05)
[2023-06-25 05:49] LABS: Creatinine, Serum 0.58 mg/dL (0.67-1.17); Vancomycin Trough 22.7 mcg/mL; eGFR CKD-EPI 126.4 (>60)
[2023-06-25] MEDS: Vancomycin Trough Check NOTE FOLLOW UP ONE (08:21)
[2023-06-25] MEDS: Vancomycin 1,000 MG in NS 0.9% 250 ml 250 ML IVPB SCH (11:25)
[2023-06-26 05:37] LABS: ABS Basophils 0.1 10^3/uL (0.0-0.1); ABS Eosinophils 0.1 10^3/uL (0.0-0.5); ABS Lymphocytes 1.6 10^3/uL (1.0-4.8); ABS Monocytes 0.4 10^3/uL (0.0-1.1); ABS Neutrophils 5.2 10^3/uL (1.5-7.6); ABS Nucleated RBC 0.01 10^3/ul; Hematocrit 30.2 % (38-53); Lymphocyte % 22.3 %; Mean Corpuscular Hemoglobin 25.5 pg (27-33); Mean Corpuscular Hgb Conc 32.9 g/dL (31-36); Mean Corpuscular Volume 77.5 fL (80-97); Mean Platelet Volume 7.5 fL (7.5-11.2); Nucleated Red Blood Cells % 0.1 %/100WBC (0.0-0.8); Platelet Count 398 10^3/uL (150-450); Red Cell Distribution Width 16.2 % (12-17); White Blood Count 7.4 10^3/uL (3.6-10.2)
[2023-06-26 06:11] LABS: Creatinine, Serum 0.56 mg/dL (0.67-1.17); Magnesium 1.9 mg/dL (1.9-2.7); Potassium 4.2 mmol/L (3.5-5.0); eGFR CKD-EPI 127.8 (>60)
[2023-06-27 04:59] LABS: ABS Eosinophils 0.1 10^3/uL (0.0-0.5); ABS Lymphocytes 1.7 10^3/uL (1.0-4.8); ABS Monocytes 0.6 10^3/uL (0.0-1.1); ABS Neutrophils 6.9 10^3/uL (1.5-7.6); ABS Nucleated RBC 0.01 10^3/ul; Eosinophil % 1.1 %; Hematocrit 28.9 % (38-53); Hemoglobin 9.6 g/dL (13.2-16.3); Lymphocyte % 18.4 %; Mean Corpuscular Hemoglobin 25.8 pg (27-33); Mean Corpuscular Hgb Conc 33.3 g/dL (31-36); Mean Corpuscular Volume 77.4 fL (80-97); Mean Platelet Volume 7.3 fL (7.5-11.2); Nucleated Red Blood Cells % 0.1 %/100WBC (0.0-0.8); Platelet Count 409 10^3/uL (150-450); Red Blood Count 3.73 10^6/uL (4.06-5.63); Red Cell Distribution Width 16.2 % (12-17); White Blood Count 9.5 10^3/uL (3.6-10.2)
[2023-06-27 05:25] LABS: Calcium 8.8 mg/dL (8.6-10.3); Creatinine, Serum 0.72 mg/dL (0.67-1.17); Magnesium 1.8 mg/dL (1.9-2.7); Potassium 4.1 mmol/L (3.5-5.0); eGFR CKD-EPI 118.4 (>60)
[2023-06-27] MEDS: Vancomycin Trough Check NOTE FOLLOW UP ONE (10:00)
[2023-06-27 10:55] LABS: Creatinine, Serum 0.7 mg/dL (0.67-1.17); Vancomycin Trough 14.9 mcg/mL; eGFR CKD-EPI 119.5 (>60)
[2023-06-29 09:58] LABS: Vancomycin Trough 17.6 mcg/mL
[2023-06-29] MEDS: Vancomycin Trough Check NOTE FOLLOW UP ONE (10:43)
[2023-06-30 05:39] LABS: C Reactive Protein 14.85 mg/L (<8.01)
[2023-06-30 18:22] LABS: Rapid COVID-19 Molecular Undetected (Undetected)
[2023-07-01 08:14] LABS: Creatinine, Serum 0.64 mg/dL (0.67-1.17); eGFR CKD-EPI 122.7 (>60)
[2023-07-01] MEDS ORDERED: Oritavancin 400 mg/40 mL Vial 1,200 MG in D5W 1000 ML BAG 880 ML IV ONE (10:00)
[2023-07-01 10:14] VITALS: BP 100/60
[2023-07-02] MEDS ORDERED: Vancomycin Trough Check NOTE FOLLOW UP ONE (10:00)
== END 2023-07-01 11:55 | disposition swing bed (61) | DRG 871 ==
LOC: ED 18:16 → EDHOLD 18:16 → SUATTDRO 06-15 09:02 → MEDTELE 06-15 10:56 → SUATTDRO 06-16 09:00
PROVIDERS: ADMIT Internal Medicine; ATTEND Internal Medicine

== ENCOUNTER 2023-08-24 09:44 | Inpatient (IN) ==
[2023-08-24 13:51] LABS: ABS Lymphocytes 0.5 10^3/uL (1.0-4.8); ABS Monocytes 0.8 10^3/uL (0.0-1.1); ABS Neutrophils 8.4 10^3/uL (1.5-7.6); ABS Nucleated RBC 0.01 10^3/ul; Eosinophil % 0.2 %; Hemoglobin 10.1 g/dL (13.2-16.3); Lymphocyte % 5.4 %; Mean Corpuscular Hemoglobin 25.8 pg (27-33); Mean Corpuscular Hgb Conc 33.7 g/dL (31-36); Mean Corpuscular Volume 76.7 fL (80-97); Mean Platelet Volume 8.9 fL (7.5-11.2); Nucleated Red Blood Cells % 0.1 %/100WBC (0.0-0.8); Platelet Count 165 10^3/uL (150-450); Red Blood Count 3.91 10^6/uL (4.06-5.63); Red Cell Distribution Width 15.8 % (12-17); White Blood Count 9.8 10^3/uL (3.6-10.2)
[2023-08-24] MEDS: Acetaminophen IV 1 GM/100ML 1,000 MG/100 ML BAG IV ONE (14:08)
[2023-08-24 14:28] LABS: Albumin 3.2 g/dL (3.2-5.2); Albumin/Globulin Ratio 0.8 (1-3); C Reactive Protein 323.23 mg/L (<8.01); Calcium 8.6 mg/dL (8.6-10.3); Creatinine, Serum 0.63 mg/dL (0.67-1.17); Potassium 3.5 mmol/L (3.5-5.0); Total Bilirubin 0.5 mg/dL (0.2-1.0); Total Protein 7.2 g/dL (6.4-8.9); eGFR CKD-EPI 123.3 (>60)
[2023-08-24] MEDS: Iohexol 300 (CONTRAST) 10 ML SDV IV ONE (15:16)
[2023-08-24] MEDS: Piperacillin/Tazobac 3.375 BAG 3.375 GM/100 ML BAG IV ONE (16:59)
[2023-08-24] MEDS: Vancomycin 1,500 MG in NS 0.9% 250 ml 250 ML IVPB ONE (17:30)
[2023-08-24] MEDS: Lactated Ringers 1000 ml BAG 1,000 ML IV SCH (22:13)
[2023-08-24] MEDS: HYDROmorphone 1 MG/1 ML SYRINGE IV SLOW PU SCH (22:14)
[2023-08-24] MEDS ORDERED: Vancomycin per Pharmacy 1 EA NOTE FOLLOW UP SCH (23:45)
[2023-08-25] MEDS: HYDROmorphone 1 MG/1 ML SYRINGE IV SLOW PU PRN ×3 (00:44→17:55)
[2023-08-25] MEDS: Enoxaparin 40 MG/0.4 ML SYR SUBCUT SCH (00:47)
[2023-08-25] MEDS: Vancomycin 1,250 MG in NS 0.9% 250 ml 250 ML IVPB SCH (02:47)
[2023-08-25] MEDS ORDERED: HYDROmorphone 1 MG/1 ML SYRINGE IV SLOW PU PRN (04:30)
[2023-08-25] MEDS: Polyethylene Glycol 3350 17 GM PACKET PO SCH (09:44)
[2023-08-25] MEDS: Sulfur Hexaflouride MICROSPHR 25 MG VIAL IV ONE (10:36)
[2023-08-25 14:10] LABS: Creatinine, Serum 0.47 mg/dL (0.67-1.17); Magnesium 1.8 mg/dL (1.9-2.7); Phosphorus 1.9 mg/dL (2.5-5.0); Potassium 3.7 mmol/L (3.5-5.0); eGFR CKD-EPI 134.7 (>60)
[2023-08-25] MEDS ORDERED: Naloxone Nasal Spray 4 MG/0.1 ML NASAL.SPR INTRANASAL PRN (16:39)
[2023-08-25] MEDS ORDERED: NS 0.9% 1000 ml BAG 1,000 ML IV SCH (17:45)
[2023-08-25 17:53] LABS: Hematocrit 32.6 % (38-53); Hemoglobin 10.4 g/dL (13.2-16.3); Mean Corpuscular Hemoglobin 24.6 pg (27-33); Mean Corpuscular Hgb Conc 31.7 g/dL (31-36); Mean Corpuscular Volume 77.5 fL (80-97); Mean Platelet Volume 8.8 fL (7.5-11.2); Platelet Count 190 10^3/uL (150-450); Red Blood Count 4.21 10^6/uL (4.06-5.63); Red Cell Distribution Width 16.3 % (12-17); White Blood Count 10.5 10^3/uL (3.6-10.2)
[2023-08-25] MEDS: Vancomycin Trough Check NOTE FOLLOW UP ONE (17:54)
[2023-08-25 18:27] LABS: ABS Eosinophils 0.1 10^3/uL (0.0-0.5); ABS Lymphocytes 0.6 10^3/uL (1.0-4.8); ABS Monocytes 0.6 10^3/uL (0.0-1.1); ABS Neutrophils 9.2 10^3/uL (1.5-7.6); Eosinophil % 0.6 %
[2023-08-25 20:04] LABS: HIV 4th Generation Nonreactive (Nonreactive)
[2023-08-25] MEDS: Acetaminophen IV 1 GM/100ML 1,000 MG/100 ML BAG IV PRN (20:54)
[2023-08-25] MEDS: Senna TAB 8.6 mg TAB PO PRN (20:57)
[2023-08-26] MEDS: HYDROmorphone 1 MG/1 ML SYRINGE IV SLOW PU PRN (13:22)
[2023-08-26 22:28] LABS: Urine Benzodiazepine Screen None Detected (None Detect); Urine Buprenorphine Screen None Detected (None Detect); Urine Cannabinoids Screen None Detected (None Detect); Urine Fentanyl Screen Presumptive Positive (None Detect); Urine Hydrocodone Screen Presumptive Positive (None Detect); Urine Opiates Screen Presumptive Positive (None Detect)
[2023-08-27 06:47] LABS: Anion Gap 10 mmol/L (2-16); Blood Urea Nitrogen 8 mg/dL (6-24); C Reactive Protein 291.95 mg/L (<8.01); CO2 Carbon Dioxide 29 mmol/L (22-32); Calcium 7.6 mg/dL (8.6-10.3); Chloride 100 mmol/L (101-111); Creatinine, Serum 0.54 mg/dL (0.67-1.17); Glucose 92 mg/dL (70-100); Magnesium 1.8 mg/dL (1.9-2.7); Sodium 139 mmol/L (135-145); eGFR CKD-EPI 129.2 (>60)
[2023-08-27 08:13] LABS: ABS Basophils 0.1 10^3/uL (0.0-0.1); ABS Eosinophils 0.1 10^3/uL (0.0-0.5); ABS Lymphocytes 0.9 10^3/uL (1.0-4.8); ABS Monocytes 0.6 10^3/uL (0.0-1.1); ABS Neutrophils 7.5 10^3/uL (1.5-7.6); ABS Nucleated RBC 0.01 10^3/ul; Eosinophil % 1.5 %; Hematocrit 35.2 % (38-53); Hemoglobin 11.4 g/dL (13.2-16.3); Lymphocyte % 9.4 %; Mean Corpuscular Hemoglobin 25.1 pg (27-33); Mean Corpuscular Hgb Conc 32.4 g/dL (31-36); Mean Corpuscular Volume 77.6 fL (80-97); Mean Platelet Volume 8.5 fL (7.5-11.2); Nucleated Red Blood Cells % 0.1 %/100WBC (0.0-0.8); Platelet Count 226 10^3/uL (150-450); Red Blood Count 4.53 10^6/uL (4.06-5.63); Red Cell Distribution Width 16.6 % (12-17); White Blood Count 9.2 10^3/uL (3.6-10.2)
[2023-08-28] MEDS: Magnesium Hydroxide LIQ 30 ML UDC PO PRN (23:45)
[2023-08-29] MEDS: Vancomycin Trough Check NOTE FOLLOW UP ONE (11:56)
[2023-08-30 10:04] LABS: ABS Basophils 0.1 10^3/uL (0.0-0.1); ABS Eosinophils 0.2 10^3/uL (0.0-0.5); ABS Lymphocytes 1.3 10^3/uL (1.0-4.8); ABS Monocytes 0.7 10^3/uL (0.0-1.1); ABS Neutrophils 10.5 10^3/uL (1.5-7.6); Eosinophil % 1.4 %; Hemoglobin 9.6 g/dL (13.2-16.3); Lymphocyte % 10.5 %; Mean Corpuscular Hemoglobin 25.1 pg (27-33); Mean Corpuscular Hgb Conc 33.1 g/dL (31-36); Mean Corpuscular Volume 76.1 fL (80-97); Platelet Count 477 10^3/uL (150-450); Red Blood Count 3.81 10^6/uL (4.06-5.63); Red Cell Distribution Width 16.3 % (12-17); White Blood Count 12.9 10^3/uL (3.6-10.2)
[2023-08-30] MEDS: Magnesium Sulfate 2 gm BAG 2 GM/50 ML BAG IVPB ONE (10:41)
[2023-08-30 11:46] LABS: Magnesium 2.3 mg/dL (1.9-2.7); Phosphorus 4.9 mg/dL (2.5-5.0); Potassium 4.9 mmol/L (3.5-5.0)
[2023-08-30 11:48] LABS: C Reactive Protein 225.55 mg/L (<8.01); Calcium 7.8 mg/dL (8.6-10.3); Creatinine, Serum 0.62 mg/dL (0.67-1.17); eGFR CKD-EPI 123.9 (>60)
[2023-08-30] MEDS: Vancomycin Trough Check NOTE FOLLOW UP ONE (12:31)
[2023-08-30] MEDS: Gadoteridol (CONTRAST) 279.3 MG/ML 10 ML IV ONE (17:18)
[2023-08-31 13:15] LABS: Hematocrit 39.2 % (38-53); Hemoglobin 12.3 g/dL (13.2-16.3); Mean Corpuscular Hemoglobin 24.6 pg (27-33); Mean Corpuscular Hgb Conc 31.4 g/dL (31-36); Mean Corpuscular Volume 78.3 fL (80-97); Platelet Count 474 10^3/uL (150-450); Red Cell Distribution Width 16.3 % (12-17); White Blood Count 12.5 10^3/uL (3.6-10.2)
[2023-08-31 13:25] LABS: Blood Urea Nitrogen 13 mg/dL (6-24); CO2 Carbon Dioxide 24 mmol/L (22-32); Calcium 8.4 mg/dL (8.6-10.3); Chloride 93 mmol/L (101-111); Creatinine, Serum 0.73 mg/dL (0.67-1.17); Glucose 83 mg/dL (70-100); Magnesium 2.3 mg/dL (1.9-2.7); Sodium 130 mmol/L (135-145)
[2023-08-31 14:07] LABS: Anion Gap 13 mmol/L (2-16)
[2023-08-31 15:44] LABS: Potassium Redraw 5.5 mmol/L (3.5-5.0)
[2023-08-31] MEDS: Vancomycin 1000 MG in NS 0.9% 250 ML IVPB SCH (16:06)
[2023-08-31 19:41] LABS: Calcium 8.1 mg/dL (8.6-10.3); Creatinine, Serum 0.7 mg/dL (0.67-1.17); eGFR CKD-EPI 119.5 (>60)
[2023-09-01] MEDS: Vancomycin Random Level NOTE FOLLOW UP ONE (00:04)
[2023-09-01 06:18] LABS: Hematocrit 29.1 % (38-53); Hemoglobin 9.7 g/dL (13.2-16.3); Mean Corpuscular Hemoglobin 25.3 pg (27-33); Mean Corpuscular Hgb Conc 33.3 g/dL (31-36); Mean Corpuscular Volume 75.8 fL (80-97); Mean Platelet Volume 6.8 fL (7.5-11.2); Platelet Count 519 10^3/uL (150-450); Red Blood Count 3.83 10^6/uL (4.06-5.63); Red Cell Distribution Width 16.1 % (12-17); White Blood Count 15.2 10^3/uL (3.6-10.2)
[2023-09-01 07:25] LABS: Calcium 8.1 mg/dL (8.6-10.3); Creatinine, Serum 0.73 mg/dL (0.67-1.17); Magnesium 2.2 mg/dL (1.9-2.7); Potassium 4.6 mmol/L (3.5-5.0)
[2023-09-01 16:13] LABS: Body Fluid Appearance Cloudy; Body Fluid Source Pleural Fluid
[2023-09-01 16:14] LABS: Body Fluid Color Amber
[2023-09-01 16:19] LABS: Body Fluid Total Nucleated 310 /mcL
[2023-09-01 17:33] LABS: Body Fluid Mono 26 %; Body Fluid Total Cells Counted 158
[2023-09-02 05:44] LABS: Hematocrit 28.4 % (38-53); Hemoglobin 9.1 g/dL (13.2-16.3); Mean Corpuscular Hemoglobin 24.5 pg (27-33); Mean Corpuscular Hgb Conc 32.1 g/dL (31-36); Mean Corpuscular Volume 76.2 fL (80-97); Mean Platelet Volume 7.2 fL (7.5-11.2); Platelet Count 489 10^3/uL (150-450); Red Blood Count 3.73 10^6/uL (4.06-5.63); Red Cell Distribution Width 15.8 % (12-17); White Blood Count 14.7 10^3/uL (3.6-10.2)
[2023-09-02 06:28] LABS: Albumin 2.5 g/dL (3.2-5.2); Albumin/Globulin Ratio 0.5 (1-3); Calcium 8.3 mg/dL (8.6-10.3); Creatinine, Serum 0.67 mg/dL (0.67-1.17); Globulin 5.1 g/dL (2-4); Indirect Bilirubin 0.2 mg/dL (0.3-1.0); Magnesium 2.1 mg/dL (1.9-2.7); Phosphorus 4.6 mg/dL (2.5-5.0); Potassium 4.8 mmol/L (3.5-5.0); Total Bilirubin 0.2 mg/dL (0.2-1.0); Total Protein 7.6 g/dL (6.4-8.9); Vancomycin Trough 17.5 mcg/mL
[2023-09-02] MEDS: Vancomycin Trough Check NOTE FOLLOW UP ONE (08:55)
[2023-09-02] MEDS: Acetaminophen IV 1 GM/100ML 1,000 MG/100 ML BAG IV SCH (11:51)
[2023-09-02] MEDS: HYDROmorphone 1 MG/1 ML SYRINGE IV SLOW PU PRN (16:45)
[2023-09-03 08:16] LABS: Hematocrit 27.9 % (38-53); Mean Corpuscular Hemoglobin 24.8 pg (27-33); Mean Corpuscular Hgb Conc 32.4 g/dL (31-36); Mean Corpuscular Volume 76.7 fL (80-97); Mean Platelet Volume 7.4 fL (7.5-11.2); Platelet Count 504 10^3/uL (150-450); Red Blood Count 3.64 10^6/uL (4.06-5.63); Red Cell Distribution Width 15.7 % (12-17); White Blood Count 12.5 10^3/uL (3.6-10.2)
[2023-09-03 09:24] LABS: Calcium 7.9 mg/dL (8.6-10.3); Creatinine, Serum 0.62 mg/dL (0.67-1.17); Magnesium 2.1 mg/dL (1.9-2.7); Potassium 4.5 mmol/L (3.5-5.0); eGFR CKD-EPI 123.9 (>60)
[2023-09-04 05:28] LABS: Hematocrit 28.4 % (38-53); Hemoglobin 9.2 g/dL (13.2-16.3); Mean Corpuscular Hemoglobin 24.7 pg (27-33); Mean Corpuscular Hgb Conc 32.2 g/dL (31-36); Mean Corpuscular Volume 76.6 fL (80-97); Mean Platelet Volume 7.8 fL (7.5-11.2); Platelet Count 467 10^3/uL (150-450); Red Blood Count 3.71 10^6/uL (4.06-5.63); Red Cell Distribution Width 15.7 % (12-17); White Blood Count 12.8 10^3/uL (3.6-10.2)
[2023-09-04 08:26] LABS: Anion Gap 8 mmol/L (2-16); Blood Urea Nitrogen 12 mg/dL (6-24); CO2 Carbon Dioxide 30 mmol/L (22-32); Calcium 8.4 mg/dL (8.6-10.3); Chloride 97 mmol/L (101-111); Creatinine, Serum 0.61 mg/dL (0.67-1.17); Glucose 80 mg/dL (70-100); Sodium 135 mmol/L (135-145); eGFR CKD-EPI 124.5 (>60)
[2023-09-04 12:02] LABS: Magnesium 1.9 mg/dL (1.9-2.7); Phosphorus 4.4 mg/dL (2.5-5.0); Potassium Redraw 4.3 mmol/L (3.5-5.0)
[2023-09-05 04:45] LABS: ABS Eosinophils 0.1 10^3/uL (0.0-0.5); ABS Lymphocytes 1.4 10^3/uL (1.0-4.8); ABS Monocytes 0.6 10^3/uL (0.0-1.1); ABS Neutrophils 8.5 10^3/uL (1.5-7.6); Eosinophil % 1.1 %; Hematocrit 26.3 % (38-53); Hemoglobin 8.6 g/dL (13.2-16.3); Lymphocyte % 13.4 %; Mean Corpuscular Hemoglobin 24.9 pg (27-33); Mean Corpuscular Hgb Conc 32.5 g/dL (31-36); Mean Corpuscular Volume 76.4 fL (80-97); Mean Platelet Volume 7.4 fL (7.5-11.2); Platelet Count 503 10^3/uL (150-450); Red Blood Count 3.45 10^6/uL (4.06-5.63); Red Cell Distribution Width 15.4 % (12-17); White Blood Count 10.7 10^3/uL (3.6-10.2)
[2023-09-05 05:41] LABS: Albumin 2.5 g/dL (3.2-5.2); Albumin/Globulin Ratio 0.5 (1-3); Calcium 8.6 mg/dL (8.6-10.3); Creatinine, Serum 0.65 mg/dL (0.67-1.17); Potassium 4.2 mmol/L (3.5-5.0); Total Bilirubin 0.1 mg/dL (0.2-1.0); Total Protein 7.5 g/dL (6.4-8.9); eGFR CKD-EPI 122.2 (>60)
[2023-09-06 04:10] LABS: ABS Eosinophils 0.1 10^3/uL (0.0-0.5); ABS Lymphocytes 1.8 10^3/uL (1.0-4.8); ABS Monocytes 0.7 10^3/uL (0.0-1.1); ABS Neutrophils 8.2 10^3/uL (1.5-7.6); ABS Nucleated RBC 0.01 10^3/ul; Eosinophil % 1.3 %; Hematocrit 26.9 % (38-53); Hemoglobin 8.7 g/dL (13.2-16.3); Lymphocyte % 16.4 %; Mean Corpuscular Hemoglobin 24.5 pg (27-33); Mean Corpuscular Hgb Conc 32.2 g/dL (31-36); Mean Corpuscular Volume 76.1 fL (80-97); Mean Platelet Volume 7.1 fL (7.5-11.2); Platelet Count 576 10^3/uL (150-450); Red Blood Count 3.54 10^6/uL (4.06-5.63); White Blood Count 10.9 10^3/uL (3.6-10.2)
[2023-09-06 04:47] LABS: Calcium 8.9 mg/dL (8.6-10.3); Creatinine, Serum 0.73 mg/dL (0.67-1.17); Magnesium 1.9 mg/dL (1.9-2.7); Potassium 4.4 mmol/L (3.5-5.0)
[2023-09-06] MEDS: Vancomycin Trough Check NOTE FOLLOW UP ONE (05:03)
[2023-09-06 12:04] LABS: Lactate Dehydrogenase, BF 456 U/L
[2023-09-06 12:06] LABS: Albumin, BF 1.9 g/dL; Fluid Type, Albumin PLEURAL FLUID; Fluid Type, Protein, Total PLEURAL FLUID; Total Protein, BF 4.7 g/dL
[2023-09-06] MEDS: Vancomycin 750 MG in NS 0.9% 250 ML IVPB SCH (14:05)
[2023-09-07 06:18] LABS: Hematocrit 25.9 % (38-53); Hemoglobin 8.8 g/dL (13.2-16.3); Mean Corpuscular Hemoglobin 25.5 pg (27-33); Mean Corpuscular Hgb Conc 33.8 g/dL (31-36); Mean Corpuscular Volume 75.5 fL (80-97); Mean Platelet Volume 7.2 fL (7.5-11.2); Platelet Count 549 10^3/uL (150-450); Red Blood Count 3.43 10^6/uL (4.06-5.63); Red Cell Distribution Width 15.5 % (12-17); White Blood Count 9.4 10^3/uL (3.6-10.2)
[2023-09-07 06:49] LABS: Creatinine, Serum 0.7 mg/dL (0.67-1.17); Phosphorus 4.9 mg/dL (2.5-5.0); Potassium 4.5 mmol/L (3.5-5.0); eGFR CKD-EPI 119.5 (>60)
[2023-09-07] MEDS: Vancomycin Trough Check NOTE FOLLOW UP ONE (16:36)
[2023-09-08] MEDS: Vancomycin Trough Check NOTE FOLLOW UP ONE (06:15)
[2023-09-08 07:00] LABS: Creatinine, Serum 0.74 mg/dL (0.67-1.17); Vancomycin Trough 14.8 mcg/mL; eGFR CKD-EPI 117.5 (>60)
[2023-09-09] MEDS: Alteplase (CATHFLO) 2 MG VIAL IV ONE (03:39)
[2023-09-09 06:15] LABS: Hematocrit 26.3 % (38-53); Hemoglobin 8.5 g/dL (13.2-16.3); Mean Corpuscular Hemoglobin 24.5 pg (27-33); Mean Corpuscular Hgb Conc 32.3 g/dL (31-36); Mean Corpuscular Volume 75.9 fL (80-97); Mean Platelet Volume 7.3 fL (7.5-11.2); Platelet Count 554 10^3/uL (150-450); Red Blood Count 3.46 10^6/uL (4.06-5.63); Red Cell Distribution Width 15.2 % (12-17); White Blood Count 9.1 10^3/uL (3.6-10.2)
[2023-09-09 07:12] LABS: Calcium 8.9 mg/dL (8.6-10.3); Creatinine, Serum 0.67 mg/dL (0.67-1.17); Potassium 4.3 mmol/L (3.5-5.0)
[2023-09-10 06:53] LABS: Creatinine, Serum 0.68 mg/dL (0.67-1.17); eGFR CKD-EPI 120.5 (>60)
[2023-09-10 18:10] VITALS: BP 116/82
[2023-09-11] MEDS ORDERED: Vancomycin Trough Check NOTE FOLLOW UP ONE (05:30)
== END 2023-09-10 20:44 | disposition swing bed (61) | DRG 871 ==
LOC: ED 09:44 → EDHOLD 18:34 → SUATTDRO 18:34 → EDHOLD 21:16 → MED 22:07
PROVIDERS: ADMIT Internal Medicine; ATTEND Student in an Organized Health Care Education/Training Program

== ENCOUNTER 2023-09-10 21:24 | Inpatient (IN) ==
[2023-09-10] MEDS ORDERED: Polyethylene Glycol 3350 17 GM PACKET PO PRN (21:47)
[2023-09-10] MEDS ORDERED: Magnesium Hydroxide LIQ 30 ML UDC PO PRN (21:47)
[2023-09-10] MEDS ORDERED: Senna TAB 8.6 mg TAB PO PRN (21:47)
[2023-09-10] MEDS ORDERED: Vancomycin per Pharmacy 1 EA NOTE FOLLOW UP SCH (22:00)
[2023-09-10] MEDS: Vancomycin 750 MG in NS 0.9% 250 ml 250 ML IVPB SCH (22:10)
[2023-09-11] MEDS ORDERED: Vancomycin Trough Check NOTE FOLLOW UP ONE (05:30)
[2023-09-11] MEDS: Enoxaparin 40 MG/0.4 ML SYR SUBCUT SCH (20:46)
[2023-09-13] MEDS: Alteplase (CATHFLO) 2 MG VIAL IV ONE (21:47)
[2023-09-15 05:45] LABS: Creatinine, Serum 0.7 mg/dL (0.67-1.17); Vancomycin Trough 16.5 mcg/mL; eGFR CKD-EPI 119.5 (>60)
[2023-09-15] MEDS: Vancomycin Trough Check NOTE FOLLOW UP SCH (08:45)
[2023-09-19] MEDS: Alteplase (CATHFLO) 2 MG VIAL IV ONE (18:58)
[2023-09-21 06:24] LABS: ABS Eosinophils 0.4 10^3/uL (0.0-0.5); ABS Lymphocytes 1.7 10^3/uL (1.0-4.8); ABS Monocytes 0.6 10^3/uL (0.0-1.1); ABS Neutrophils 4.3 10^3/uL (1.5-7.6); ABS Nucleated RBC 0.01 10^3/ul; Eosinophil % 6.3 %; Lymphocyte % 23.7 %; Mean Corpuscular Hemoglobin 24.4 pg (27-33); Mean Corpuscular Hgb Conc 32.2 g/dL (31-36); Mean Corpuscular Volume 75.9 fL (80-97); Mean Platelet Volume 7.7 fL (7.5-11.2); Nucleated Red Blood Cells % 0.1 %/100WBC (0.0-0.8); Platelet Count 408 10^3/uL (150-450); Red Blood Count 3.69 10^6/uL (4.06-5.63); Red Cell Distribution Width 15.4 % (12-17)
[2023-09-21 06:54] LABS: Albumin 3.1 g/dL (3.2-5.2); Albumin/Globulin Ratio 0.6 (1-3); C Reactive Protein 13.56 mg/L (<8.01); Calcium 9.2 mg/dL (8.6-10.3); Creatinine, Serum 0.71 mg/dL (0.67-1.17); Globulin 4.8 g/dL (2-4); Potassium 4.4 mmol/L (3.5-5.0); Total Bilirubin 0.2 mg/dL (0.2-1.0); Total Protein 7.9 g/dL (6.4-8.9); eGFR CKD-EPI 118.9 (>60)
[2023-09-22] MEDS: Vancomycin Trough Check NOTE FOLLOW UP SCH (07:38)
[2023-09-28 06:05] LABS: ABS Eosinophils 0.4 10^3/uL (0.0-0.5); ABS Lymphocytes 1.8 10^3/uL (1.0-4.8); ABS Monocytes 0.7 10^3/uL (0.0-1.1); ABS Neutrophils 3.7 10^3/uL (1.5-7.6); Hematocrit 28.8 % (38-53); Hemoglobin 9.6 g/dL (13.2-16.3); Mean Corpuscular Hemoglobin 25.3 pg (27-33); Mean Corpuscular Hgb Conc 33.2 g/dL (31-36); Mean Corpuscular Volume 76.2 fL (80-97); Mean Platelet Volume 7.7 fL (7.5-11.2); Nucleated Red Blood Cells % 0.1 %/100WBC (0.0-0.8); Platelet Count 316 10^3/uL (150-450); Red Blood Count 3.78 10^6/uL (4.06-5.63); Red Cell Distribution Width 17.8 % (12-17); White Blood Count 6.7 10^3/uL (3.6-10.2)
[2023-09-28 07:06] LABS: Albumin 3.5 g/dL (3.2-5.2); Albumin/Globulin Ratio 0.8 (1-3); C Reactive Protein 22.03 mg/L (<8.01); Calcium 9.4 mg/dL (8.6-10.3); Creatinine, Serum 0.68 mg/dL (0.67-1.17); Globulin 4.5 g/dL (2-4); Potassium 4.4 mmol/L (3.5-5.0); Total Bilirubin 0.3 mg/dL (0.2-1.0); eGFR CKD-EPI 120.5 (>60)
[2023-09-29 06:44] LABS: Creatinine, Serum 0.74 mg/dL (0.67-1.17); Vancomycin Trough 15.5 mcg/mL; eGFR CKD-EPI 117.5 (>60)
[2023-09-29] MEDS: Vancomycin Trough Check NOTE FOLLOW UP ONE (10:11)
[2023-10-05 06:16] LABS: ABS Basophils 0.1 10^3/uL (0.0-0.1); ABS Eosinophils 0.5 10^3/uL (0.0-0.5); ABS Lymphocytes 1.9 10^3/uL (1.0-4.8); ABS Monocytes 0.8 10^3/uL (0.0-1.1); ABS Neutrophils 4.4 10^3/uL (1.5-7.6); Eosinophil % 6.7 %; Hematocrit 30.7 % (38-53); Lymphocyte % 24.8 %; Mean Corpuscular Hemoglobin 24.8 pg (27-33); Mean Corpuscular Hgb Conc 32.6 g/dL (31-36); Mean Platelet Volume 7.9 fL (7.5-11.2); Platelet Count 263 10^3/uL (150-450); Red Blood Count 4.04 10^6/uL (4.06-5.63); Red Cell Distribution Width 18.1 % (12-17); White Blood Count 7.8 10^3/uL (3.6-10.2)
[2023-10-05 06:24] LABS: Albumin 3.9 g/dL (3.2-5.2); Albumin/Globulin Ratio 0.8 (1-3); C Reactive Protein 16.34 mg/L (<8.01); Calcium 9.8 mg/dL (8.6-10.3); Creatinine, Serum 0.69 mg/dL (0.67-1.17); Globulin 4.7 g/dL (2-4); Potassium 4.2 mmol/L (3.5-5.0); Total Bilirubin 0.3 mg/dL (0.2-1.0); Total Protein 8.6 g/dL (6.4-8.9)
[2023-10-07 10:37] VITALS: BP 127/81
== END 2023-10-07 11:45 | disposition short-term general hospital (02) | DRG 871 ==
LOC: MED 21:24 → SUATTDRO 21:24
PROVIDERS: ADMIT Student in an Organized Health Care Education/Training Program; ATTEND Student in an Organized Health Care Education/Training Program